=== PATIENT | male | born 1955 | race Caucasian/White ===

== ENCOUNTER 2022-11-07 00:38 | Emergency (ER) | payer MEDICARE, OTHER ==
[~2022-11-07] VITALS: Ht 177.8 cm; Wt 108.0 kg
[2022-11-07 00:49] VITALS: BP 151/92
[2022-11-07 01:01] VITALS: BP 141/78
[2022-11-07 01:15] VITALS: BP 149/90
[2022-11-07 01:31] VITALS: BP 142/73
[2022-11-07] MEDS ORDERED: AMOXICILLIN500 MG PO (01:47)
[2022-11-07 02:01] VITALS: BP 130/70
[2022-11-07 02:09] VITALS: BP 130/70
== END 2022-11-07 02:27 | disposition home or self-care (01) ==
LOC: ED 00:38
PROC: 0HQKXZZ Repair Right Lower Leg Skin, External Approach (ICD-10-PCS; principal; 2022-11-07)
DX: S81.811A Laceration without foreign body, right lower leg, initial encounter (principal); W29.3XXA Contact with powered garden and outdoor hand tools and machinery, initial encounter; Y92.009 Unspecified place in unspecified non-institutional (private) residence as the place of occurrence of the external cause